=== PATIENT | male | born 1980 | race Caucasian/White ===

== ENCOUNTER 2018-06-21 15:39 | Emergency (ER) | payer SELFPAY ==
[~2018-06-21] VITALS: Ht 177.8 cm; Wt 80.7 kg
== END 2018-06-21 20:56 | disposition left against medical advice (07) ==
LOC: ER 15:39
DX: Z53.21 Procedure and treatment not carried out due to patient leaving prior to being seen by health care provider (principal)
CPT/HCPCS: 99282

== ENCOUNTER 2018-06-22 01:00 | Emergency (ER) | payer SELFPAY ==
[~2018-06-22] VITALS: Ht 180.3 cm; Wt 88.5 kg
== END 2018-06-22 03:28 | disposition home or self-care (01) ==
LOC: ER 01:00
DX: J06.9 Acute upper respiratory infection, unspecified (principal); Z87.891 Personal history of nicotine dependence
CPT/HCPCS: 99283

== ENCOUNTER 2019-01-04 19:18 | Emergency (ER) | payer OTHER ==
[~2019-01-04] VITALS: Ht 180.3 cm; Wt 89.4 kg
== END 2019-01-04 21:54 | disposition home or self-care (01) ==
LOC: ER 19:18
DX: R11.2 Nausea with vomiting, unspecified (principal); Z87.891 Personal history of nicotine dependence
CPT/HCPCS: 99283; A9270-GY

== ENCOUNTER 2019-09-13 16:39 | Emergency (ER) | payer SELFPAY ==
[~2019-09-13] VITALS: Ht 180.3 cm; Wt 90.7 kg
[2019-09-13] MEDS ORDERED: Prednisone20 MG PO ×2 (17:55→17:59)
== END 2019-09-13 18:01 | disposition home or self-care (01) ==
LOC: ER 16:39
DX: J20.9 Acute bronchitis, unspecified (principal); Z87.891 Personal history of nicotine dependence
CPT/HCPCS: 71046; 99284-25